=== PATIENT | female | born 1995 | race Caucasian/White ===

== ENCOUNTER 2016-11-04 19:32 | Emergency (ER) | payer OTHER ==
[~2016-11-04] VITALS: Ht 167.6 cm; Wt 70.5 kg
[2016-11-04 19:45] VITALS: BP 123/88; PULSE 74; RESP 16; O2SAT 99
--- NOTE | 2016-11-04 20:12 | ED.REPORT ---
HPI- Female Date of Service November 04, 2016 ED Provider: Anderson Davis MD Patient is a 21 year old female who presents to the ED with vaginal discomfort that began 3 days ago. Associated symptoms include russo vaginal discharge, vaginal odor, swelling and redness. Her discomfort initially began while she was hiking redness, itching and irritation of the labia and the area of discomfort was initially small toe has progressively spread. Her discomfort has become increasingly worse over the past few days. Patient has had yeast infections previously with similar though much less severe symptoms. She denies any recent antibiotic use. Patient recently had an IUD placed in 04/2016. She denies history of STI. She is not sexually active. She reports that the pain has become quite severe. She states that [place] and is been hiking for 10 or more hours every day. She reports that she has been sleeping with her clothing on, often sweating quite a bit of chafing and moistness in the vaginal/groin area. Nursing Notes Stated Complaint: VAGINAL PAIN Chief Complaint: Female Abdominal Pain Nursing Notes Reviewed: Yes Allergies: Coded Allergies: No Known Allergies (Unverified , 11/04/16) General Time Seen by MD: 20:11 Chief Complaint Vaginal discharge... Hx Obtained From: Patient Arrived By: Walk-in Sudden in Onset?: Yes Onset Occurred: 3 days ago Symptom Duration: Since onset Pertinent Negative: Pt denies other symptoms Physical Exam Initial Vital Signs Vital Signs (First) Date Time Temp Pulse Resp B/P Pulse Ox O2 Delivery O2 Flow Rate FiO2 11/04/16 19:45 36.2 74 16 123/88 99 Room Air Initial VS: Reviewed Head / Eyes: Atraumatic, Normocephalic, PERRL Neck: Supple, Non-tender, Full range of motion Extremities: Vascular intact, Neuro intact, No swelling, No tenderness Skin: Warm, Dry, No cyanosis Neurologic: Alert, Oriented, Nonfocal Psychiatric: Mood/affect normal, Behavior normal, Normal thought content Female Genitourinary: Looper Fixer present, Atraumatic Vaginal Bleeding / Discharge: Positive: Discharge copious (copious frothy saenz vaginal secretions ) FEMALE : Vulvar erythema to the external vaginal and medial thighs Superficial ulceration of the internal labia majora Closed cervix Able to visualize IUD strings General/Constitutional: Awake, Alert, No acute distress Respiratory / Chest: Atraumatic, Breath sounds NL, Breath sounds = bilat, No respiratory distress Cardiovascular: Heart rate NL, Regular rhythm, Heart sounds NL, No gallop, No murmurs, No rubs Abdomen: Atraumatic, Soft, Non-tender, BS normoactive, No distention Tenderness/Guarding/Rebound: Negative: Tender suprapubic Interpretation & Diagnostics Lab Results Interpretation Test 11/04/16 20:57 11/04/16 21:01 Urine Color Yellow (YELLOW) Urine Appearance Hazy (CLEAR,HAZY) Urine pH 5.5 (5.0-8.0) Urine Specific [place] 1.025 (1.003-1.035) Urine Protein Negativemg/dL (NEG,TRACE) Urine Glucose (UA) Negativemg/dL (NEGATIVE) Urine Ketones Negativemg/dL (NEGATIVE) Urine Occult Blood Large (NEGATIVE) Urine Nitrite Negative (NEGATIVE) Urine Bilirubin Negative (NEGATIVE) Urine Urobilinogen Normalmg/dL (NORMAL) Urine Leukocyte Esterase Moderate (NEGATIVE) Urine RBC 11-50/hpf (0-2) Urine WBC 6-10/hpf (0-5) Urine Epithelial Cells Few/hpf (NONE-MOD) Urine Crystals None seen (NONE SEEN) Urine Bacteria Few/hpf (NONE-FEW) Urine Hyaline Casts None/lpf (NONE) Urine Granular Casts None seen (NONE SEEN) Urine Waxy Casts None seen (NONE SEEN) Urine Red Blood Cell Casts None seen (NONE SEEN) Urine White Blood Cell Casts None seen (NONE SEEN) Urine Mucus None seen (None Seen) Urine Trichomonas None seen (NONE SEEN) Urine Yeast None (NONE SEEN) Urinalysis Comment None Urine Culture Reflexed Indicated Re-Eval/Medical Decision Med Decision/Clinical Course Patient is a 21 year old female who presents to the ED with vaginal discomfort that began 3 days ago. Associated symptoms include russo vaginal discharge, vaginal odor, swelling and redness. Her discomfort initially began while she was hiking redness, itching and irritation of the labia and the area of discomfort was initially small toe has progressively spread. Her discomfort has become increasingly worse over the past few days. Patient has had yeast infections previously with similar though much less severe symptoms. She denies any recent antibiotic use. Patient recently had an IUD placed in 04/2016. She denies history of STI. She is not sexually active. She reports that the pain has become quite severe. She states that [place] and is been hiking for 10 or more hours every day. She reports that she has been sleeping with her clothing on, often sweating quite a bit of chafing and moistness in the vaginal/groin area. Here in the emergency department the patient is afebrile with stable vital signs and examination as above. Of note she has quite impressive erythema about the groin/vaginal area with some ulceration and irritation about the internal aspect of the labia majora that seems possibly related to friction. That being said, she also has quite a bit of copious/saenz vaginal discharge. Urinalysis as below: 2 + leukocytes negative nitrites + blood negative Gonorrhea/chlamydia/wet mount obtained and pending. I suspect that the patient's presentation is multifactorial she does appear to have Natalie vaginitis based on examination with her also appears to be quite a bit of mechanical irritation to the groin region, likely related to hiking for greater than 10 hours almost every day for the last month, reviewed moisture to the groin area, mechanical chafing and sleeping and hiking clothing. I have advised her to abstain from hiking for a few days, do sitz baths and give the region time to recover. I think that she should also be treated for candidal vulvovaginitis and I have given her 150 mg, resolved. Moreover, I will empirically treat her with Flagyl for possible bacterial vaginosis. 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 Prior to discharge follow-up and return precautions were reviewed in detail with the patient who verbalized understanding and agreement with the plan. The patient was discharged in stable condition. While she does have some signs of UTI I suspect this is more related to her external vaginal irritation/inflammation. Re-Evaluation/Progress : Time of Eval: 20:47 Patient Status: Condition improved Re-Evaluation/Progress Note: Patient is informed of her pelvic exam results and likely diagnosis. All questions are addressed. She understands and agrees with treatment plan to folllow up with PCP. Counseled Regarding: Diagnosis, Lab results, Need for follow-up, When/why to return to ED Discharge & Departure Impression: Primary Impression: Bacterial vaginosis Additional Impressions: Vaginal candidosis Vaginal irritation Vaginal pain Disposition: Home Discharge Condition All VS Reviewed: Yes Condition: Improved Patient Instructions: Vulvovaginal Candidiasis (ED) Additional Instructions: Thank you for seeking care at the emergency room. It is difficult for us to make definitive diagnoses in the ED but we believe that you are experiencing a yeast infection or bacterial vaginosis. Your evaluation today was reassuring. You will be discharged with a prescription for *Flagyl.Take repeat of fluconazole in 72 hours if symptoms persist. You should follow-up with your primary doctor in the next week for a recheck. See referral for rack cleaner in discharge instructions, follow up if symptoms persist. You should return to the ED immediately if you develop fevers, chills, vomiting , abdominal pain, vaginal bleeding/discharge or any other concerning signs or symptoms. Thank you for letting us partake in your care today. *Please do not drink alcohol while on this medication. Referrals: Kellie Fulton MD Attestation Portions of this note were transcribed by Vikki Mcnally. I, Dr. Davis personally performed the history, physical exam and medical decision-making; I reviewed and confirmed the accuracy of the information in the transcribed note. Signed by: Breonna Mandel, 11/04/16 2102. Anderson Davis MD November 04, 2016 20:12 VIKKI MCNALLY November 04, 2016 20:14
[2016-11-04 21:15] LABS: APPEARANCE,URINE HAZY (CLEAR,HAZY); COLOR,URINE YELLOW (YELLOW); OCCULT BLOOD,URINE LARGE (NEGATIVE); PH,URINE 5.5 (5.0-8.0); UROBILINOGEN,URINE NORMAL (NORMAL)
[2016-11-04 21:47] VITALS: BP 120/78; PULSE 91; RESP 16; O2SAT 100
== END 2016-11-04 21:43 | disposition home or self-care (01) ==
LOC: SED 19:32
DX: N76.0 Acute vaginitis (principal); B37.3 Candidiasis of vulva and vagina; R10.2 Pelvic and perineal pain